=== PATIENT | male | born 1995 | race Caucasian/White ===

== ENCOUNTER 2022-02-16 15:38 | Emergency (ER) | payer BC, SELFPAY ==
[2022-02-16] MEDS ORDERED: Ketorolac Tromethamine 30 MG/ML VIAL ONE (16:08)
== END 2022-02-16 17:00 | disposition home or self-care (01) ==
LOC: CSHERS 15:38
DX: S43.015A Anterior dislocation of left humerus, initial encounter (principal); S43.035A Inferior dislocation of left humerus, initial encounter; Y93.75 Activity, martial arts; W50.0XXA Accidental hit or strike by another person, initial encounter
CPT/HCPCS: 23650; 96372; J1885

== ENCOUNTER 2022-08-11 22:36 | Emergency (ER) | payer BC, SELFPAY ==
[2022-08-12] MEDS ORDERED: PROPOFOL 20 ML ONE ×2 (00:09→00:26)
== END 2022-08-12 01:16 | disposition home or self-care (01) ==
LOC: CSHERS 22:36
DX: S43.005A Unspecified dislocation of left shoulder joint, initial encounter (principal); W21.05XA Struck by basketball, initial encounter
CPT/HCPCS: 23650; 99152; J2704